=== PATIENT | female | born 1995 | race Caucasian/White ===

== ENCOUNTER 2017-01-22 08:49 | Emergency (ER) | payer OTHER ==
[~2017-01-22] VITALS: Ht 160 cm; Wt 79.4 kg
[~2017-01-22 08:49] MED LIST: MOTRIN800 MG PO; NOHOMEMEDS; PERCOCET 5/31 TABLET PO; PRENATAL TABLE1 EAC3 PO; PROAIR HFA8.5 GM IH; SINGULAIR10 MG PO; TYLENOL REGULA325 MG PO
[2017-01-22 08:54] VITALS: BP 131/76
[2017-01-22] MEDS ORDERED: NAPROXEN500 MG PO (09:22)
[2017-01-22] MEDS ORDERED: PEN-VEE K,VEET500 MG PO (09:22)
== END 2017-01-22 09:35 | disposition home or self-care (01) ==
LOC: EME 08:49
DX: K08.89 Other specified disorders of teeth and supporting structures (principal); K00.6 Disturbances in tooth eruption; M54.2 Cervicalgia
CPT/HCPCS: 99281; 99284

== ENCOUNTER 2017-10-09 20:11 | Outpatient (CLI) | payer OTHER ==
[~2017-10-09 20:11] MED LIST changes: +NAPROXEN500 MG PO; +PEN-VEE K,VEET500 MG PO
[2017-10-09 20:26] VITALS: BP 123/62
== END 2017-10-09 22:30 | disposition home or self-care (01) ==
LOC: LDRP-OP 20:11 → 2WEST 20:12
DX: Z03.79 Encounter for other suspected maternal and fetal conditions ruled out (principal); W01.0XXA Fall on same level from slipping, tripping and stumbling without subsequent striking against object, initial encounter; Z3A.26 26 weeks gestation of pregnancy; Z87.891 Personal history of nicotine dependence
CPT/HCPCS: 59025; G0378

== ENCOUNTER 2017-10-14 09:40 | Emergency (ER) | payer OTHER ==
[~2017-10-14] VITALS: Ht 160 cm; Wt 89.5 kg
[2017-10-14 10:38] LABS: HEMATOCRIT 38.2 % (36.0-46.0); MCH 30.4 PG (29.0-34.0); MCV 89.5 FL (83-99); PLATELET COUNT 203 K/uL (156-360); RBC DIS.WIDTH-CV 13.2 % (11.8-14.6); RBC DIS.WIDTH-SD 43.2 % (39-53); RED BLOOD COUNT 4.27 M/uL (3.80-5.20); WHITE BLOOD COUNT 10.8 K/uL (4.1-10.2)
[2017-10-14 10:44] LABS: APPEARANCE SL.HAZY ((CLEAR)); BILIRUBIN NEGATIVE; BLOOD NEGATIVE; COLOR YELLOW ((YELLOW)); GLUCOSE (STRIP) NEGATIVE; KETONES 20; LEUKOCYTES TRACE; NITRITE NEGATIVE; PROTEIN (STRIP) 30; SPECIFIC GRAVITY 1.028 (1.000-1.030)
[2017-10-14 10:48] LABS: ALBUMIN 3.8 g/dL (3.2-4.8); CHLORIDE 105 mEq/L (99-109); SODIUM 139 mEq/L (136-147)
[2017-10-14 10:51] LABS: GLUCOSE 99 mg/dL (70-99); TOTAL PROTEIN 7.3 g/dL (6.4-8.3)
[2017-10-14 10:51] LABS: BACTERIA RARE /HPF; EPITHELIAL CELLS RARE /HPF; MUCUS 2+ /LPF; RED BLOOD CELLS 0-5 /HPF (0-5); UCUL ADDED? NO; WHITE BLOOD CELLS 0-5 /HPF (0-5)
[2017-10-14 10:53] LABS: TOTAL BILIRUBIN 0.8 mg/dL (0.0-1.0)
[2017-10-14 10:54] LABS: ALKALINE PHOSPHATASE 80 IU/L (3-129); CREATININE 0.7 mg/dL (0.6-1.3); GFR ESTIMATE (CALCULATED) > 59 mL/min/
[2017-10-14 10:55] LABS: UREA NITROGEN (BUN) 13 mg/dL (9-23)
[2017-10-14 10:56] LABS: AST (GOT) 12 IU/L (2-34)
[2017-10-14 10:57] LABS: ALT (GPT) 8 IU/L (3-49)
[2017-10-14 11:06] LABS: QUANTITATIVE HCG 13892.5 MIU/ML
[2017-10-14] MEDS ORDERED: PRENATAL TABLE1 EAC3 PO (11:18)
[2017-10-14] MEDS ORDERED: ZOFRAN ODT4 MG PO (13:31)
[2017-10-14 13:50] VITALS: BP 105/69
== END 2017-10-14 13:53 | disposition home or self-care (01) ==
LOC: EME 09:40
DX: O21.9 Vomiting of pregnancy, unspecified (principal); O99.613 Diseases of the digestive system complicating pregnancy, third trimester; K21.9 Gastro-esophageal reflux disease without esophagitis; Z3A.00 Weeks of gestation of pregnancy not specified
CPT/HCPCS: 80053; 81003; 84702; 85027; 99281; 99283

== ENCOUNTER 2018-01-04 04:03 | Inpatient (IN) | payer OTHER ==
[2018-01-04] VITALS (10 sets, daily range): BP systolic 70–121; BP diastolic 35–70
[~2018-01-04] VITALS: Ht 160 cm; Wt 90.7 kg
[~2018-01-04 04:03] MED LIST changes: +ZOFRAN ODT4 MG PO
[2018-01-04 12:11] LABS: AMPHETAMINE NEGATIVE (500 ng/mL); BARBITURATES NEGATIVE (200 ng/mL); BENZODIAZEPINES NEGATIVE (150 ng/mL); BUPRENORPHINE NEGATIVE (10 ng/mL); COCAINE NEGATIVE (150 ng/mL); METHADONE NEGATIVE (200 ng/mL); METHAMPHETAMINE NEGATIVE (500 ng/mL); OPIATES (MORPHINE) NEGATIVE (100 ng/mL); OXYCODONE NEGATIVE (100 ng/mL); PHENCYCLIDINE NEGATIVE (25 ng/mL); PROPOXYPHENE NEGATIVE (300 ng/mL); THC CANNABINOIDS NEGATIVE (50 ng/mL); TRICYCLIC ANTIDEPRESSANTS NEGATIVE (300 ng/mL)
[2018-01-05] VITALS (7 sets, daily range): BP systolic 101–134; BP diastolic 53–77
[2018-01-05] MEDS ORDERED: PERCOCET 5/31 TABLET PO (01:37)
[2018-01-05] MEDS ORDERED: MOTRIN800 MG PO (01:37)
[2018-01-05 07:01] LABS: BASOPHIL (%) 0.2 % (0-1); EOSINOPHIL (%) 0.5 % (0-5); EOSINOPHIL COUNT 0.1 K/uL (0-0.3); HEMATOCRIT 32.9 % (36.0-46.0); HEMOGLOBIN 10.6 G/DL (11.9-15.5); IMMATURE GRANULOCYTE (%) 0.3 % (0.0-0.7); LYMPHOCYTE (%) 24.4 % (15-42); LYMPHOCYTE COUNT 3.4 K/uL (1.0-2.8); MCH 28.3 PG (29.0-34.0); MCHC 32.2 G/DL (30.0-36.0); MCV 87.7 FL (83-99); MONOCYTE (%) 6.8 % (3-12); MONOCYTE COUNT 0.9 K/uL (0-0.8); NEUTROPHIL (%) 67.8 % (45-76); NEUTROPHIL COUNT 9.3 K/uL (1.8-6.4); PLATELET COUNT 200 K/uL (156-360); RBC DIS.WIDTH-CV 14.1 % (11.8-14.6); RBC DIS.WIDTH-SD 44.9 % (39-53); RED BLOOD COUNT 3.75 M/uL (3.80-5.20); WHITE BLOOD COUNT 13.8 K/uL (4.1-10.2)
[2018-01-06 03:12] VITALS: BP 104/60
[2018-01-06 07:14] VITALS: BP 107/55
[2018-01-06 10:51] VITALS: BP 103/57
== END 2018-01-06 13:13 | disposition home or self-care (01) | DRG 765 ==
LOC: 2SOUTH 04:03 → 2WEST 09:15 → 2SOUTH 15:42 → 2WEST 01-06 13:13
PROVIDERS: Obstetrics & Gynecology
PROC: 10D00Z1 Extraction of Products of Conception, Low, Open Approach (ICD-10-PCS; principal; 2018-01-04)
DX: O34.211 Maternal care for low transverse scar from previous cesarean delivery (principal); O99.354 Diseases of the nervous system complicating childbirth; Z37.0 Single live birth; Z3A.39 39 weeks gestation of pregnancy; O12.04 Gestational edema, complicating childbirth; L30.9 Dermatitis, unspecified; O99.72 Diseases of the skin and subcutaneous tissue complicating childbirth; O99.824 Streptococcus B carrier state complicating childbirth; G43.909 Migraine, unspecified, not intractable, without status migrainosus; Z82.3 Family history of stroke; Z82.49 Family history of ischemic heart disease and other diseases of the circulatory system; Z82.0 Family history of epilepsy and other diseases of the nervous system
CPT/HCPCS: 36415; 85025; 86850; 86900; 86901; J0690; J1100; J2274; J2405; J3010; J7120